=== PATIENT | female | born 1995 | race Caucasian/White ===

== ENCOUNTER 2022-06-22 15:51 | Emergency (ER) | payer OTHER ==
[2022-06-22 16:21] VITALS: TEMP 98.2; BMI 27.4
[2022-06-22] MEDS ORDERED: SODIUM CHLORIDE 0.9% 500 ML INFUS.BAG IV ONE (16:43)
[2022-06-22] MEDS ORDERED: ONDANSETRON 4 MG/2 ML VIAL IVPUSH ONE (16:43)
[2022-06-22] MEDS ORDERED: ACETAMINOPHEN 1000 MG/100 ML BAG IVPB ONE (16:43)
[2022-06-22 18:00] LABS: BASO % 0.3 % (0-2.0); EOS % 0.7 % (0-4.5); HEMATOCRIT 36.9 % (32.4-45.2); HEMOGLOBIN 12.6 GM/dL (10.7-15.3); LYMPH % 19.7 % (8-40); MCH 29.6 pg (25.7-33.7); MCHC 34.2 g/dl (32.0-36.0); MEAN CELL VOLUME 86.5 fl (80-96); MEAN PLT VOLUME 7.6 fl (7.5-11.1); MONO % 5.7 % (3.8-10.2); NEUT % 73.6 % (42.8-82.8); PLATELET COUNT 338 10^3/uL (134-434); RBC 4.27 M/mm3 (3.60-5.2); RDW 13.3 % (11.6-15.6); WHITE BLOOD COUNT 9.3 K/mm3 (4.0-10.0)
[2022-06-22 18:03] LABS: EPI CELLS 13 /uL (0-25.1); HYALINE CASTS 5 /uL (0-3.1); PH,URINE 6.5 (5.0-8.0); URINE APPEARANCE CLEAR; URINE BACTERIA 2872 /uL (0-1359); URINE BILIRUBIN NEGATIVE (NEGATIVE); URINE COLOR DK YELLOW; URINE GLUCOSE (UA) NEGATIVE (NEGATIVE); URINE KETONE 3+ (NEGATIVE); URINE LEUK ESTERASE 1+ (NEGATIVE); URINE NITRITE NEGATIVE (NEGATIVE); URINE PROTEIN 1+ (NEGATIVE); URINE RBC 9 /uL (0-23.9); URINE WBC 166 /uL (0-25.8)
[2022-06-22 18:18] LABS: CALCIUM 9.3 mg/dL (8.5-10.1)
[2022-06-22 18:19] LABS: ALBUMIN 3.2 g/dl (3.4-5.0); BLOOD UREA NITROGEN 10.7 mg/dL (7-18)
[2022-06-22 18:21] VITALS: BP 109/62; PULSE 99; RESP 17
[2022-06-22 18:22] LABS: CREATININE 0.6 mg/dL (0.55-1.3)
[2022-06-22 18:23] LABS: BILIRUBIN,TOTAL 0.6 mg/dL (0.2-1)
== END 2022-06-22 20:03 | disposition home or self-care (01) ==
LOC: JER 15:51
PROC: 3E033GC Introduction of Other Therapeutic Substance into Peripheral Vein, Percutaneous Approach (ICD-10-PCS; principal; 2022-06-22)
DX: O21.9 Vomiting of pregnancy, unspecified (principal); Z3A.17 17 weeks gestation of pregnancy
CPT/HCPCS: 0241U-QW; 36415; 80053; 81003; 85025; 87086; 93005; 93010; 99284-25

== ENCOUNTER 2022-07-14 21:04 | Inpatient (IN) | payer OTHER ==
[2022-07-14 21:07] VITALS: BMI 27.4
[2022-07-14] MEDS ORDERED: ONDANSETRON 4 MG/2 ML VIAL IVPUSH ONE (22:49)
[2022-07-14] MEDS ORDERED: SODIUM CHLORIDE 0.9% 500 ML INFUS.BAG IV ONE (22:49)
[2022-07-14] MEDS ORDERED: ONDANSETRON 4 MG/2 ML VIAL ONE (23:09)
[2022-07-14 23:47] LABS: BASO % 0.4 % (0-2.0); EOS % 0.6 % (0-4.5); HEMATOCRIT 34.8 % (32.4-45.2); HEMOGLOBIN 11.9 GM/dL (10.7-15.3); LYMPH % 18.7 % (8-40); MCH 29.9 pg (25.7-33.7); MCHC 34.3 g/dl (32.0-36.0); MEAN CELL VOLUME 87.2 fl (80-96); MEAN PLT VOLUME 7.5 fl (7.5-11.1); MONO % 5.4 % (3.8-10.2); NEUT % 74.9 % (42.8-82.8); PLATELET COUNT 299 10^3/uL (134-434); RBC 3.99 M/mm3 (3.60-5.2); RDW 13.7 % (11.6-15.6); WHITE BLOOD COUNT 9.7 K/mm3 (4.0-10.0)
[2022-07-14 23:51] LABS: EPI CELLS 26 /uL (0-25.1); HYALINE CASTS 27 /uL (0-3.1); URINE APPEARANCE CLOUDY; URINE BACTERIA >9,000 /uL (0-1359); URINE BILIRUBIN NEGATIVE (NEGATIVE); URINE COLOR YELLOW; URINE GLUCOSE (UA) NEGATIVE (NEGATIVE); URINE KETONE 2+ (NEGATIVE); URINE LEUK ESTERASE 2+ (NEGATIVE); URINE NITRITE POSITIVE (NEGATIVE); URINE PROTEIN 1+ (NEGATIVE); URINE RBC 46 /uL (0-23.9); URINE WBC 350 /uL (0-25.8)
[2022-07-14] MEDS ORDERED: CEFTRIAXONE 1,000 MG in DEXTROSE 5%-WATER - 50 ML IVPB ONE (23:55)
[2022-07-15] MEDS ORDERED: CEFTRIAXONE 1 GM/50 ML BAG ONE (00:02)
[2022-07-15] MEDS ORDERED: FAMOTIDINE 20 MG/50 ML IVPB 20 MG/50 ML MG IVPB ONE ×4 (00:02→14:00)
[2022-07-15 00:04] LABS: CALCIUM 9.1 mg/dL (8.5-10.1)
[2022-07-15 00:05] LABS: BLOOD UREA NITROGEN 8.9 mg/dL (7-18)
[2022-07-15 00:08] LABS: CREATININE 0.5 mg/dL (0.55-1.3)
[2022-07-15 00:09] LABS: BILIRUBIN,TOTAL 0.5 mg/dL (0.2-1)
[2022-07-15] MEDS ORDERED: ACETAMINOPHEN 325 MG TABLET (FP) PO PRN (03:54)
[2022-07-15] MEDS ORDERED: ALBUTEROL SO4 HFA INHALER IH PRN (04:06)
[2022-07-15] MEDS ORDERED: ACETAMINOPHEN 325 MG TABLET (FP) ONE (04:37)
[2022-07-15] MEDS: DEXTROSE 5%-NORMAL SALINE 1,000 ML IV SCH (04:42)
[2022-07-15] MEDS: ONDANSETRON 4 MG/2 ML VIAL IVPUSH PRN (11:55)
[2022-07-15] MEDS ORDERED: ONDANSETRON 4 MG/2 ML VIAL ONE (11:57)
[2022-07-15] MEDS: CEFTRIAXONE 1 GM in DEXTROSE 5%-WATER - 50 ML IVPB SCH (21:31)
[2022-07-16] MEDS: ONDANSETRON 4 MG/2 ML VIAL IVPUSH PRN ×3 (02:25→21:13)
[2022-07-16] MEDS: FAMOTIDINE 20 MG TABLET PO SCH (04:54)
[2022-07-16 09:04] LABS: BASO % 0.4 % (0-2.0); EOS % 2.2 % (0-4.5); HEMATOCRIT 28.3 % (32.4-45.2); HEMOGLOBIN 9.9 GM/dL (10.7-15.3); LYMPH % 41.7 % (8-40); MCH 30.5 pg (25.7-33.7); MCHC 35.2 g/dl (32.0-36.0); MEAN CELL VOLUME 86.7 fl (80-96); MEAN PLT VOLUME 7.8 fl (7.5-11.1); MONO % 7.2 % (3.8-10.2); NEUT % 48.5 % (42.8-82.8); PLATELET COUNT 263 10^3/uL (134-434); RBC 3.26 M/mm3 (3.60-5.2); RDW 13.3 % (11.6-15.6); WHITE BLOOD COUNT 5.7 K/mm3 (4.0-10.0)
[2022-07-16 09:45] LABS: BLOOD UREA NITROGEN 4.1 mg/dL (7-18); MAGNESIUM 1.7 mg/dL (1.8-2.4)
[2022-07-16 09:49] LABS: CREATININE 0.4 mg/dL (0.55-1.3)
[2022-07-16] MEDS: DEXTROSE 5%-NORMAL SALINE 1,000 ML IV SCH ×2 (09:50→23:12)
[2022-07-16] MEDS ORDERED: FLU VACC QS2022-23(6MOS UP)/PF 60 MCG/0.5 ML SYRINGE IM ONE (10:00)
[2022-07-16] MEDS: ENOXAPARIN NA (PORCINE) 40 MG/0.4 ML DISP.SYRIN SQ SCH (11:53)
[2022-07-16] MEDS: CEFTRIAXONE 1 GM in DEXTROSE 5%-WATER - 50 ML IVPB SCH (21:31)
[2022-07-17] MEDS: ONDANSETRON 4 MG/2 ML VIAL IVPUSH PRN ×3 (04:59→22:10)
[2022-07-17 09:50] LABS: BASO % 0.3 % (0-2.0); HEMATOCRIT 28.2 % (32.4-45.2); HEMOGLOBIN 9.9 GM/dL (10.7-15.3); LYMPH % 30.4 % (8-40); MCH 30.5 pg (25.7-33.7); MCHC 35.2 g/dl (32.0-36.0); MEAN CELL VOLUME 86.8 fl (80-96); MEAN PLT VOLUME 7.8 fl (7.5-11.1); MONO % 7.1 % (3.8-10.2); NEUT % 60.2 % (42.8-82.8); PLATELET COUNT 268 10^3/uL (134-434); RBC 3.25 M/mm3 (3.60-5.2); RDW 13.5 % (11.6-15.6); WHITE BLOOD COUNT 6.8 K/mm3 (4.0-10.0)
[2022-07-17 10:04] LABS: CALCIUM 8.1 mg/dL (8.5-10.1)
[2022-07-17 10:05] LABS: ALBUMIN 2.5 g/dl (3.4-5.0); BLOOD UREA NITROGEN 3.3 mg/dL (7-18)
[2022-07-17 10:08] LABS: CREATININE 0.4 mg/dL (0.55-1.3)
[2022-07-17 10:09] LABS: BILIRUBIN,TOTAL 0.4 mg/dL (0.2-1)
[2022-07-17 10:10] LABS: TOT PROT 5.4 g/dl (6.4-8.2)
[2022-07-17] MEDS: ENOXAPARIN NA (PORCINE) 40 MG/0.4 ML DISP.SYRIN SQ SCH (11:01)
[2022-07-17] MEDS: FAMOTIDINE 20 MG TABLET PO SCH (11:02)
[2022-07-17] MEDS: CEFTRIAXONE 1 GM in DEXTROSE 5%-WATER - 50 ML IVPB SCH (12:18)
[2022-07-18] MEDS: ONDANSETRON 4 MG/2 ML VIAL IVPUSH PRN (04:19)
[2022-07-18] MEDS: FAMOTIDINE 20 MG TABLET PO SCH (09:07)
[2022-07-18] MEDS: CEFTRIAXONE 1 GM in DEXTROSE 5%-WATER - 50 ML IVPB SCH ×2 (10:44→11:28)
[2022-07-18] MEDS: ENOXAPARIN NA (PORCINE) 40 MG/0.4 ML DISP.SYRIN SQ SCH (10:46)
[2022-07-18] MEDS ORDERED: CEFUROXIME AXETIL 500 MG TABLET PO SCH (12:00)
[2022-07-18 15:29] VITALS: BP 98/56; PULSE 72; RESP 16; TEMP 98.2
== END 2022-07-18 18:05 | disposition home or self-care (01) | DRG 566 ==
LOC: JER 21:04 → JERBED 07-15 00:43 → J3W 07-15 17:18
PROVIDERS: ADMIT Internal Medicine; ATTEND Internal Medicine
DX: O23.02 Infections of kidney in pregnancy, second trimester (principal); O99.012 Anemia complicating pregnancy, second trimester; B96.1 Klebsiella pneumoniae [K. pneumoniae] as the cause of diseases classified elsewhere; O21.0 Mild hyperemesis gravidarum; Z3A.18 18 weeks gestation of pregnancy; N13.6 Pyonephrosis
CPT/HCPCS: 0241U-QW; 36415; 76775-TC; 76815-TC; 80048; 80053; 81003; 83690; 83735; 84100; 85025; 86850; 86900; 86901; 87040; 87086; 87186; 87491; 87591; 93005; 93010; 99285-25; G0008; Q2036

== ENCOUNTER 2022-12-02 19:15 | Inpatient (IN) | payer OTHER ==
[2022-12-02] MEDS ORDERED: DINOPROSTONE 10 MG VAGINAL SUPPOSITORY VG ONE (20:30)
[2022-12-02 21:40] VITALS: BMI 30.9
[2022-12-02] MEDS: ELECTROLYTE-148 SOLN 1,000 ML IV SCH (21:45)
[2022-12-03] MEDS ORDERED: ZOLPIDEM TARTRATE 5 MG TABLET ONE (00:07)
[2022-12-03] MEDS ORDERED: ZOLPIDEM TARTRATE 5 MG TABLET PO ONE (00:30)
[2022-12-03] MEDS ORDERED: BUTORPHANOL TARTRATE 2 MG/ML VIAL IVPB ONE (04:15)
[2022-12-03] MEDS ORDERED: BUTORPHANOL TARTRATE 2 MG/ML VIAL ONE (04:17)
[2022-12-03] MEDS ORDERED: OXYTOCIN 30 UNITS in 0.9% NS 30 UNIT/500 ML INFUS.BAG IVPB SCH (05:40)
[2022-12-03] MEDS ORDERED: OXYTOCIN 30 UNITS in 0.9% NS 30 UNIT/500 ML INFUS.BAG IVPB ONE (06:24)
[2022-12-03] MEDS: ELECTROLYTE-148 SOLN 1,000 ML IV SCH (06:40)
[2022-12-03] MEDS ORDERED: FENTANYL/BUPIVACAINE/NS/PF - PCEA - 50 ML DISP.SYRIN EP ONE ×2 (09:55→13:49)
[2022-12-03] MEDS ORDERED: NALOXONE HCL 0.4 MG/ML VIAL IVPUSH PRN (09:56)
[2022-12-03] MEDS ORDERED: FENTANYL/BUPIVACAINE/NS/PF - PCEA - 50 ML DISP.SYRIN EP SCH (10:00)
[2022-12-03] MEDS ORDERED: FENTANYL CITRATE/PF 50 MCG/ML VIAL ONE (10:12)
[2022-12-03] MEDS ORDERED: ONDANSETRON 4 MG/2 ML VIAL ONE (10:47)
[2022-12-03] MEDS ORDERED: ONDANSETRON 4 MG/2 ML VIAL IVPB ONE (10:50)
[2022-12-03] MEDS ORDERED: LIDOCAINE HCL 1% PRESERVATIVE FREE - 30ML VIAL ONE (14:58)
[2022-12-03] MEDS ORDERED: OXYTOCIN 20 UNITS in 0.9% NS 20 UNIT/1,000 ML INFUS.BAG IV ONE (14:58)
[2022-12-03] MEDS ORDERED: OXYTOCIN 20 UNITS in 0.9% NS 20 UNIT/1,000 ML INFUS.BAG IV SCH ×2 (15:05→17:45)
[2022-12-03] MEDS ORDERED: WITCH HAZEL 50% (TUCKS) 40 PAD/JAR PAD TP PRN (17:43)
[2022-12-03] MEDS ORDERED: BISACODYL 10 MG SUPP.RECT RC PRN (17:43)
[2022-12-03] MEDS ORDERED: BENZOCAINE 20% 57 GM BOTTLE TP PRN (17:43)
[2022-12-03] MEDS ORDERED: BENZOCAINE 28 GM HEMORRHOIDAL OINTMENT TP PRN (17:43)
[2022-12-03] MEDS ORDERED: METHYLERGONOVINE MALEATE 0.2 MG/1 ML AMP IM PRN (17:43)
[2022-12-03] MEDS ORDERED: ACETAMINOPHEN 325 MG TABLET (FP) PO PRN (17:43)
[2022-12-03] MEDS: IBUPROFEN 600 MG TABLET (FP) PO PRN (18:03)
[2022-12-04] MEDS: IBUPROFEN 600 MG TABLET (FP) PO PRN ×2 (04:21→18:15)
[2022-12-04] MEDS: oxyCODONE HCL 5 MG TABLET PO PRN (07:38)
[2022-12-04 07:40] LABS: BASO % 0.7 % (0-2.0); EOS % 0.4 % (0-4.5); HEMATOCRIT 26.1 % (32.4-45.2); HEMOGLOBIN 8.4 GM/dL (10.7-15.3); LYMPH % 26.7 % (8-40); MCHC 32.1 g/dl (32.0-36.0); MEAN CELL VOLUME 74.8 fl (80-96); MEAN PLT VOLUME 9.6 fl (7.5-11.1); MONO % 7.1 % (3.8-10.2); NEUT % 65.1 % (42.8-82.8); PLATELET COUNT 213 10^3/uL (134-434); RBC 3.49 M/mm3 (3.60-5.2); RDW 15.6 % (11.6-15.6); WHITE BLOOD COUNT 11.5 K/mm3 (4.0-10.0)
[2022-12-04] MEDS: FERROUS SO4 325 MG TABLET (FP) PO SCH (21:02)
[2022-12-04] MEDS ORDERED: SENNOSIDES/DOCUSATE COMBO (SENNA PLUS) TABLET (UD) PO PRN (22:00)
[2022-12-04 22:19] VITALS: RESP 18
[2022-12-05] MEDS: IBUPROFEN 600 MG TABLET (FP) PO PRN ×2 (00:42→09:23)
[2022-12-05] MEDS: FERROUS SO4 325 MG TABLET (FP) PO SCH (09:23)
[2022-12-05 11:16] VITALS: BP 112/80; PULSE 83; TEMP 97.4
[2022-12-05] MEDS: oxyCODONE HCL 5 MG TABLET PO PRN (12:25)
== END 2022-12-05 17:30 | disposition home or self-care (01) | DRG 560 ==
LOC: JLDR 19:15 → J3W 12-03 17:22
PROVIDERS: ADMIT Specialist; ATTEND Specialist
PROC: 10E0XZZ Delivery of Products of Conception, External Approach (ICD-10-PCS; principal; 2022-12-03)
DX: O80 Encounter for full-term uncomplicated delivery (principal); Z3A.38 38 weeks gestation of pregnancy; Z37.0 Single live birth
CPT/HCPCS: 36415; 80053; 85025; 85027; 85610; 85730; 86780; 86850; 86900; 86901; 87389; C9803-CS; U0003; U0005